=== PATIENT | female | born 1975 | race Asian ===

== ENCOUNTER 2024-11-15 09:02 | Outpatient (OUT) | payer SELFPAY ==
[2024-11-15 10:08] LABS: Free T3 1.78 pg/mL (2.18-3.98)
== END 2024-11-15 09:03 | disposition home or self-care (01) ==
PROVIDERS: PCP Family Medicine; Visit Provider Family Medicine
DX: E03.9 Hypothyroidism, unspecified (principal)
CPT/HCPCS: 36415; 84436; 84481